=== PATIENT | female | born 1965 | race African-American/Black ===

== ENCOUNTER 2017-05-08 01:20 | Emergency (ER) | payer SELFPAY, MEDICAID ==
[2017-05-08] MEDS: ONDANSETRON 4 MG INJ IV (04:28)
[2017-05-08] MEDS: morphine 4 MG/ML VIAL IV ×2 (04:28→06:58)
[2017-05-08] MEDS: SOD CHLORIDE 0.9% 1,000 ML IV (04:29)
[2017-05-08] MEDS: INSULIN LISPRO 100 UNIT/ML VIAL SC (04:35)
[2017-05-08 04:46] LABS: ADD MAN DIFF? NO
[2017-05-08 04:47] LABS: BASOPHILS % 0.5 % (0.0-2.0); EOSINOPHILS # 0.4 10^3/ul (0.0-0.5); EOSINOPHILS % 5.9 % (0.0-7.0); HEMATOCRIT 34.6 % (37.0-47.0); HEMOGLOBIN 10.5 g/dl (12.0-16.0); LYMPHOCYTES # 1.9 10^3/ul (0.8-2.9); LYMPHOCYTES % 25.1 % (15.0-51.0); MEAN CORPUSCULAR HEMOGLOBIN 24.2 pg (29.0-33.0); MEAN CORPUSCULAR HGB CONC 30.3 g/dl (32.0-37.0); MEAN CORPUSCULAR VOLUME 79.9 fl (82.0-101.0); MEAN PLATELET VOLUME 11.1 fl (7.4-10.4); MONOCYTE # 0.8 10^3/ul (0.3-0.9); MONOCYTES % 10.1 % (0.0-11.0); NEUTROPHIL # 4.3 10^3/ul (1.6-7.5); NEUTROPHILS % 58.1 % (39.0-77.0); PLATELET COUNT 333 10^3/UL (140-415); RED BLOOD COUNT 4.33 10^6/ul (4.20-5.40)
[2017-05-08 04:47] LABS: WHITE BLOOD COUNT 7.4 10^3/ul (4.8-10.8)
[2017-05-08 05:04] LABS: ALANINE AMINOTRANSFERASE 83 IU/L (13-69); ALBUMIN 4.1 g/dl (3.3-4.9); ALBUMIN/GLOBULIN RATIO 1.24; ALKALINE PHOSPHATASE 99 IU/L (42-121); ANION GAP 17 (8-16); ASPARTATE AMINO TRANSFERASE 48 IU/L (15-46); BILIRUBIN,INDIRECT 0.1 mg/dl (0-1.1); BILIRUBIN,TOTAL 0.1 mg/dl (0.2-1.3); BLOOD UREA NITROGEN 18 mg/dl (7-20); CALCIUM 9.6 mg/dl (8.4-10.2); CARBON DIOXIDE 34 mmol/L (21-31); CHLORIDE 93 mmol/L (97-110); CREATININE 0.85 mg/dl (0.44-1.00); GLUCOSE 380 mg/dl (70-220); POTASSIUM 3.6 mmol/L (3.5-5.1); SODIUM 140 mmol/L (135-144); TOTAL PROTEIN 7.4 g/dl (6.1-8.1)
[2017-05-08 05:11] LABS: LACTIC ACID 1.8 mmol/L (0.5-2.0)
[2017-05-08] MEDS: KETOROLAC 30 MG INJ IV (05:30)
== END 2017-05-08 14:00 | disposition home or self-care (01) ==
LOC: E/R 01:20
DX: G62.9 Polyneuropathy, unspecified (principal); E11.65 Type 2 diabetes mellitus with hyperglycemia; M79.604 Pain in right leg; I10 Essential (primary) hypertension; Z79.4 Long term (current) use of insulin; Z79.84 Long term (current) use of oral hypoglycemic drugs
CPT/HCPCS: 36415; 80053; 82962; 83605; 85025; 96372; 96374; 96375; 96376; 99284-25